=== PATIENT | male | born 1980 | race Caucasian/White ===

== ENCOUNTER 2020-04-10 06:06 | Observation (INO) ==
[2020-04-08 10:21] LABS: Basophils # (Auto) 0.02 K/mcL (0.00-0.30); Basophils % (Auto) 0.4 % (0.0-2.0); Eosinophils # (Auto) 0.12 K/mcL (0.00-0.70); Eosinophils % (Auto) 2.6 % (0.0-7.0); Granulocytes % (Auto) 63.8 % (38.0-78.0); Hematocrit 41.2 % (40.1-51.0); Hemoglobin 14.2 g/dL (13.7-17.5); Lymphocytes # (Auto) 1.35 K/mcL (1.50-4.80); Lymphocytes % (Auto) 28.9 % (15.5-49.0); Mean Cell Volume 89.2 fL (80.0-100.0); Mean Corpuscular HGB Conc 34.5 g/dL (31.0-36.0); Mean Platelet Volume 9.7 fL (7.4-10.4); Monocytes % (Auto) 4.3 % (1.0-12.0); Platelet Count 178 K/mcL (140-440); RBC 4.62 M/mcL (4.63-6.08); WBC 4.7 K/mcL (4.50-11.00)
[2020-04-08 11:06] LABS: ALT/SGPT 250 U/l (0-40); AST/SGOT 85 U/l (0-37); Albumin 4.2 gm/dL (3.2-5.2); Albumin/Globulin Ratio 1.7 (1.0-2.3); Alkaline Phosphatase 115 U/L (39-117); Bilirubin,Total 1.4 mg/dL (0.0-1.0); Blood Urea Nitrogen 14 mg/dl (6-20); Calcium 9.2 mg/dl (8.6-10.4); Carbon Dioxide 26 mmol/L (22-30); Chloride 104 mmol/L (96-108); Globulin 2.5 gm/dL (2.2-3.7); Glomerular Filtration Rate 85; Glucose 87 mg/dL (70-105)
[2020-04-08 12:04] LABS: INR 0.9 (0.9-1.1); Prothrombin Time 12.5 sec (11.9-14.5)
[~2020-04-10 06:06] MED LIST: ceFAZolin 2 GM in DEXTROSE 5% IN WATER 50 ML IV SCH
[2020-04-10] MEDS ORDERED: DEXAMETHASONE 10 MG/ML VIAL IV ONE (07:38)
[2020-04-10] MEDS ORDERED: KETAMINE 100 MG/ML ML IV ONE (07:38)
[2020-04-10] MEDS ORDERED: MIDAZOLAM 2 MG/2 ML VIAL IV ONE (07:38)
[2020-04-10] MEDS ORDERED: fentaNYL 100 MCG/2 ML VIAL IV ONE (07:38)
[2020-04-10] MEDS ORDERED: SUGAMMADEX SODIUM 200 MG/2 ML VIAL IV ONE (07:38)
[2020-04-10] MEDS ORDERED: ROCURONIUM 10 MG/ML ML IV ONE (07:38)
[2020-04-10] MEDS ORDERED: LIDOCAINE HCL/PF 100 MG/5 ML SYRINGE IV ONE (07:38)
[2020-04-10] MEDS ORDERED: GLYCOPYRROLATE 0.2 MG/ML VIAL IV ONE (07:38)
[2020-04-10] MEDS ORDERED: PROPOFOL 200 MG/20 ML VIAL IV ONE (07:38)
[2020-04-10] MEDS ORDERED: ONDANSETRON 4 MG/2 ML VIAL IV ONE (07:38)
[2020-04-10] MEDS ORDERED: ONDANSETRON 4 MG/2 ML VIAL IV PRN (08:27)
[2020-04-10] MEDS ORDERED: PROMETHAZINE 25 MG/ML VIAL IV PRN (08:27)
[2020-04-10] MEDS ORDERED: KETOROLAC 30 MG/ML VIAL IV PRN (08:27)
[2020-04-10] MEDS ORDERED: ACETAMINOPHEN 1,000 MG/100 ML BOTTLE IV ONE (08:27)
[2020-04-10] MEDS ORDERED: IPRATROPIUM/ALBUTEROL 3 ML AMPUL.NEB NEB PRN (08:27)
[2020-04-10] MEDS ORDERED: MEPERIDINE 25 MG/ML SYRINGE IV PRN (08:27)
[2020-04-10] MEDS ORDERED: fentaNYL 100 MCG/2 ML VIAL IV PRN (08:27)
[2020-04-10] MEDS ORDERED: LACTATED RINGERS 1,000 ML IV SCH (08:30)
--- NOTE | 2020-04-10 08:58 | Brief Operative Note ---
Brief Operative Note Date of procedure: 04/10/20 Pre-op diagnosis: cholelithiasis with cholecystitis Post-op diagnosis: other (acute cholecystitis with cholelithiasis) Procedure: laparoscopic cholecystectomy Grafts/Implants: No Anesthesia: GETA Findings: severely inflamed ,shrunken gallbladder with sludge and stones Complications: none Surgeon: Ольга Jacobs Estimated blood loss (cc): 10 Specimens Removed/Pathology: other (gallbladder) Condition: stable Disposition: PACU
[2020-04-10] MEDS ORDERED: DOCUSATE SODIUM 100 MG CAPSULE PO SCH (09:00)
[2020-04-10] MEDS ORDERED: HYDROmorphone 1 MG/ML SYRINGE IV PRN ×2 (09:03→10:05)
[2020-04-10] MEDS: oxyCODONE HCL 5 MG TABLET PO PRN ×3 (12:05→20:58)
[2020-04-10] MEDS: SENNOSIDES 1 TABLET PO SCH (20:30)
[2020-04-10] MEDS: DOCUSATE SODIUM 100 MG CAPSULE PO SCH (20:31)
[2020-04-10] MEDS ORDERED: SENNOSIDES 1 TABLET PO SCH (21:00)
[2020-04-11] MEDS: oxyCODONE HCL 5 MG TABLET PO PRN ×4 (01:49→16:30)
[2020-04-11] MEDS: PROMETHAZINE 25 MG/ML VIAL IV PRN ×2 (06:29→18:28)
[2020-04-11 07:42] LABS: ALT/SGPT 171 U/l (0-40); AST/SGOT 61 U/l (0-37); Albumin 4.1 gm/dL (3.2-5.2); Albumin/Globulin Ratio 1.6 (1.0-2.3); Alkaline Phosphatase 96 U/L (39-117); Bilirubin,Direct 0.4 mg/dL (0.0-0.3); Bilirubin,Total 1.9 mg/dL (0.0-1.0); Blood Urea Nitrogen 13 mg/dl (6-20); Calcium 9.1 mg/dl (8.6-10.4); Carbon Dioxide 26 mmol/L (22-30); Chloride 101 mmol/L (96-108); Globulin 2.6 gm/dL (2.2-3.7); Glomerular Filtration Rate 96; Glucose 108 mg/dL (70-105); Lactate Dehydrogenase 207 U/L (94-250); Phosphorous 5.1 mg/dL (2.7-4.5); Triglycerides 90 mg/dl (<150); Uric Acid 5.4 mg/dL (2.5-8.0)
[2020-04-11] MEDS: DOCUSATE SODIUM 100 MG CAPSULE PO SCH ×2 (09:33→22:10)
--- NOTE | 2020-04-11 12:23 | Surgical Pathology Report ---
HISTOLOGY SPECIMEN MICROSCOPIC DIAGNOSIS GALLBLADDER, CHOLECYSTECTOMY: -- ACUTE AND CHRONIC CHOLECYSTITIS. -- CHOLELITHIASIS. -- ONE PERICYSTIC LYMPH NODE WITH REACTIVE FOLLICULAR HYPERPLASIA. (DMT:adj) PROCEDURAL IMPRESSION Cholelithiasis, cholecystitis. GROSS DESCRIPTION Received in formalin designated gallbladder per requisition, is a purple-goss gallbladder. It is 5.5 x 2.5 x 1.4 cm. The duct is not clearly identified. There is a 1.2 cm stapled margin. It is inked black. There are multiple yellow stones from less than 0.1 to 0.5 cm. The mucosa is pink-perry and rough-surfaced. The wall is up to 0.4 cm thick. Supervisor Asphalt Paving sections submitted in one cassette. (SCB:adj) Electronically Signed by: Jaylan Randle M.D.
--- NOTE | 2020-04-11 17:10 | General Surgery Progress Note ---
SUBJECTIVE Subjective Patient information: Note initiated : 04/11/20 at 5:04 pm Service Date, if different from initiated Date: [] Patient: Max Roche 39 y/o M admitted on for Laparoscopic Cholecystectomy. Chief Complaint: [] Interval history: Narrative:patient states that he has significant nausea and his pain is not controlled. He has had some dry heaves but no vomiting. He is afebrile. Liver panel shows slight elevation of SGOT and SGPT with normal alkaline phosphatase. He is having difficulty passing flatus. He does not wish to have his diet advanced at this time. Constitutional Vitals: Vital Signs Temp Pulse Resp BP Pulse Ox 99.0 F 81 16 115/70 95 04/11/20 15:45 04/11/20 15:45 04/11/20 15:45 04/11/20 15:45 04/11/20 15:45 Period Temp Pulse Resp BP Sys/Q[place]ada Pulse Ox Last 24 Hr 98.4 F-99.7 F 81-91 16-16 97-122/61-82 94-97 Intake and Output 04/11/20 04/11/20 04/11/20 05:59 13:59 21:59 Intake Total 950 240 Output Total 1275 Balance -325 240 Intake & Output: Intake & Output 04/11/20 04/11/20 04/11/20 05:59 13:59 21:59 Intake Total 950 240 Output Total 1275 Balance -325 240 Intake: Oral 950 240 Output: Void Amount 1275 Other: Urine Appearance Clear Clear Urine Color Bright Yellow Bright Yellow Urine Odor Normal Normal # Voids 1 Eye Eye exam: Present EOMI, normal appearance and PERRL ENT ENT exam: Present mucous membranes moist, normal exam and normal oropharynx Neck Neck exam: Present full ROM; Absent tenderness and thyromegaly Respiratory Respiratory exam: Present CTAB; Absent rales, rhonchi and wheezes Cardiovascular Cardiovascular exam: Present RRR, +S1 and +S2 GI/Abdominal GI/Abdominal exam: Present soft, distended and tenderness Extremities Exam Extremities exam: Present full ROM Neurological Exam Neurological exam: Present alert, CN II-XII intact, normal gait, oriented X3 and reflexes normal Psychiatric Psychiatric exam: Present normal affect and normal mood A/P Assessment and plan (1) Cholelithiasis and cholecystitis without obstruction: Status: Acute Narrative A/P Narrative: Narrative: Time Spent With Patient Time: Total time spent is greater than 50% in coordination of care (as documented) at patient's floor/unit and/or counseling patient:
[2020-04-11] MEDS: ONDANSETRON 4 MG/2 ML VIAL IV PRN (22:05)
[2020-04-11] MEDS: SENNOSIDES 1 TABLET PO SCH (22:11)
[2020-04-12] MEDS: ONDANSETRON 4 MG/2 ML VIAL IV PRN (03:40)
[2020-04-12] MEDS: DOCUSATE SODIUM 100 MG CAPSULE PO SCH (09:21)
--- NOTE | 2020-04-12 10:38 | Discharge Summary ---
Discharge Provider Provider Patient information: Note initiated : 04/12/20 at 10:32 am Service Date, if different from initiated Date: [] Patient: Max Roche 39 y/o M admitted on 04/11/20 for Laparoscopic Cholecystectomy. Chief Complaint: [] Date of admission: 04/11/20 17:00 Discharge date: 04/10/20 Primary care physician: Zay Redding Admitting clinician: Ольга Rodriguez Attending physician on admission: Ольга Rodriguez Attending physician on discharge: Ольга Rodriguez Discharging clinician: sonia rodriguez COURSE Hospital Course Hospital Course: 39-year-old male with history of acute cholecystitis with cholelithiasis and choledocholithiasis. He underwent ERCP with stone extraction as an outpatient and had laparoscopic cholecystectomy 10 April. Yesterday he had continued nausea and uncontrolled pain with bloating. He was monitored overnight and is now significantly improved. He is tolerating regular diet without difficulty and is passing flatus. His pain is adequately controlled. Discharge diagnosis: acute cholecystitis with cholelithiasis Reason for admission: postoperative cholecystectomy Procedures: laparoscopic cholecystectomy Pertinent studies/significant findings: none Complications: none Time Spent with Patient Time attestation: Total time spent providing and/or coordinating discharge services: Physical Examination Vital Signs Vital signs: Temp Pulse Resp BP Pulse Ox 98.7 F 86 16 119/82 93 04/12/20 08:00 04/12/20 08:00 04/12/20 08:00 04/12/20 08:00 04/12/20 08:00 General physical appearance General physical exam: well developed, well nourished and no distress Eyes Eye exam: PERRL and normal ocular movement; negative icteric ENT ENT exam: normal pinna, normal nares and normal mucosa Head Head exam IM: Present atraumatic, normal inspection and normocephalic Neck Neck exam: no masses, no bruits, trachea midline and no lymphadenopathy Cardiovascular Cardiovascular exam IM: Present normal rate and rhythm, RRR, +S1 and +S2; Absent gallop and JVD Respiratory Respiratory exam: normal expansion, normal respiratory effort, clear to percussion, clear to auscultation and other Abdomen Abdomen: Present soft, tender (mild tenderness around signs otherwise benign abdomen) and bowel sounds (normal bowel sounds) Integumentary Integumentary: Present no rash, no growths, no abnormal pigmentation and other Neurologic Neurologic: Present normal coordination and normal sensation Musculoskeletal Musculoskeletal: Present normal gait, normal posture and other Psychiatric Psychiatric: Present oriented to time, oriented to person, oriented to place, speech is normal, memory intact and other Discharge Plan Patient/Caregiver Discharge Instructions Activity: increase activity as tolerated Diet: Low Fat Instructions: Laparoscopic Cholecystectomy (DC) Prescriptions: New ondansetron HCl [Zofran] 4 MG tablet 4 mg PO Q4-6HP PRN (Reason: nausea and vomiting) Qty: 20 RF: 0 oxycodone 10 mg tablet 10 mg PO Q4H PRN (Reason: pain) Qty: 20 RF: 0 No Action ibuprofen 1 dose PO PRN PRN (Reason: Pain) RF: 0 Follow Up Plan Follow up with: Ольга Rodriguez MD [Physician] - 04/25/20 2:00 pm Patient Disposition: Home, Self-Care Prognosis: Good Rehab Potential: Good I certify that the patient requires SNF services: No Overall status at discharge: patient is progressing back to baseline Discharge Orders: Discharge Order (Routine); Ordered 04/12/20 Ordered By: Ольга Rodriguez Pending Pending Pending: Resuscitation Status Full Code Diet Full Liquid Diet Start WedApr 10 09 Docusate Sodium (Colace) 100 mg PO BID LISETTE Last Admin: 04/12/20 09:21 Dose: 100 mg Documented by: Admin: 04/11/20 22:10 Dose: 100 mg Documented by: Admin: 04/11/20 09:33 Dose: 100 mg Documented by: Admin: 04/10/20 20:31 Dose: 100 mg Documented by: AMAURI Hydromorphone HCl (Dilaudid) 1 mg IV Q2HP PRN; Protocol PRN Reason: Per Pain Protocol Last Admin: 04/11/20 22:12 Dose: 1 mg Documented by: AMUARI Ondansetron HCl (Zofran) 4 mg IV Q4HP PRN PRN Reason: Nausea And Vomiting Last Admin: 04/12/20 03:40 Dose: 4 mg Documented by: Admin: 04/11/20 22:05 Dose: 4 mg Documented by: AMAURI Oxycodone HCl (Roxicodone) 10 mg PO Q4HP PRN; Protocol PRN Reason: Per Pain Protocol Last Admin: 04/11/20 16:30 Dose: 10 mg Documented by: Admin: 04/11/20 09:35 Dose: 10 mg Documented by: Admin: 04/11/20 06:09 Dose: 10 mg Documented by: Admin: 04/11/20 01:49 Dose: 10 mg Documented by: Admin: 04/10/20 20:58 Dose: 10 mg Documented by: Admin: 04/10/20 16:44 Dose: 10 mg Documented by: Admin: 04/10/20 12:05 Dose: 10 mg Documented by: REVA Promethazine HCl (Phenergan) 12.5 mg IV Q6HP PRN PRN Reason: Nausea And Vomiting Last Admin: 04/11/20 18:28 Dose: 12.5 mg Documented by: Admin: 04/11/20 06:29 Dose: 12.5 mg Documented by: AMAURI Senna (Senokot) 2 tab PO HS LISETTE Last Admin: 04/11/20 22:11 Dose: 2 tab Documented by: Admin: 04/10/20 20:30 Dose: 2 tab Documented by: AMAURI Shift Summary 04/12/20 04:19 Shift Summary by Erin Shaver The patient is alert and oriented times four and is up to void via urinal in the restroom and ambulated in the halls approximately once last evening and requires minimal SBA. His VSS and he has remained afebrile, RA, IV SL to his right hand and is tolerating a full liquid diet well without nausea this shift after a new order for Zofran was obtained and given twice for symptom management. Medicated once with Dilaudid 1 mg and has denied pain 0/10 the remainder of the NOC, no Roxicodone given due to nausea and poor appetite with minimal to no intake yesterday. His abdomen is soft and slightly distended and tender but he is passing flatus now and states he feels much improved. He has four lap sites to his abdomen with Tegaderm CDI and was changed to OBS status but his hoping to D/C to home today with his spouse who very supportive and visited last evening. Will update shift summary report at bedside. Initialized on 04/12/20 04:19 - END OF NOTE
--- NOTE | 2020-04-15 13:39 | Operative Note ---
DATE OF OPERATION: 04/11/2020 DATE OF PROCEDURE: 04/10/2020 PREOPERATIVE DIAGNOSIS: Cholelithiasis with cholecystitis. POSTOPERATIVE DIAGNOSIS: Cholelithiasis with cholecystitis. PROCEDURE: Laparoscopic cholecystectomy. SURGEON: Ольга Jacobs M.D. FINDINGS: Severely inflamed, shrunken gallbladder with sludge and stones. DESCRIPTION OF PROCEDURE: Under general anesthesia, the patient was prepped and draped in a sterile field. Timeout procedure was carried out as per protocol. Supraumbilical incision was made and Veress needle was inserted. The abdomen was insufflated 3 liters of CO2. Infraumbilical port was placed. Laparoscope was placed. Under videoscopic guidance, and 12 mm port and two 5 mm ports were placed in the ___ region. The gallbladder was severely inflamed and shrunken and packed with stones and sludge. The gallbladder was grasped and positioned. The cystic duct was dissected followed back to the gallbladder. Cystic artery was dissected and followed onto the wall of the gallbladder. Once I was sure that it did not enter directly into the gallbladder, the cystic duct was divided using Endo TEQUILA stapler at its junction with the gallbladder. This was then doubly-clipped for assurance. The cystic artery was clipped with four clips on the wall of the gallbladder and divided. The gallbladder was then from the infrahepatic bed using electrocautery. Gallbladder was placed into an Endopouch and retrieved. Irrigation was carried out. Bleeding in the bed was fully controlled with electrocautery. ___ ___ ___ CO2 was allowed to escape from the abdomen and the ports were removed. Fascia at the umbilicus was closed with 3-0 Vicryl. Skin incisions were closed with maulik. Tegaderm dressings were placed. The patient tolerated the procedure well. He was awakened, transferred to a bed, and taken to the postanesthetic care unit in stable, satisfactory condition. LCS:tessa Job ID: [id number] Doc ID: [id number] Ольга Jacobs M.D.
== END 2020-04-12 12:25 | disposition home or self-care (01) ==
LOC: SUR 06:06 → MEDSUR 06:06
PROVIDERS: ADMIT Family Medicine Adult Medicine; ATTEND Family Medicine Adult Medicine